=== PATIENT | female | born 1990 | race African-American/Black ===

== ENCOUNTER 2020-09-29 11:43 | Inpatient (IN) | payer MEDICAID, OTHER ==
[2020-09-29] VITALS (8 sets, daily range): BP systolic 93–114; BP diastolic 34–77
[~2020-09-29] VITALS: Ht 165.1 cm; Wt 59.0 kg
--- NOTE | 2020-09-29 11:50 | NUR ---
Dr Melo at bedside for MSE.
[2020-09-29] MEDS ORDERED: IV NORMAL SALINE 1000 ML BAG IV ONE (12:00)
[2020-09-29 12:09] LABS: BASOPHILS # (AUTO) 0.1 K/uL (0.0-8.0); BASOPHILS % (AUTO) 0.8 % (0.0-2.0); EOSINOPHILS # (AUTO) 0.1 K/uL (0.0-0.7); EOSINOPHILS % (AUTO) 1.1 % (0.0-7.0); HEMATOCRIT 37.8 % (31.2-41.9); HEMOGLOBIN 11.9 g/dL (10.9-14.3); LYMPHOCYTES # (AUTO) 2.6 K/uL (20.0-40.0); LYMPHOCYTES % (AUTO) 39.9 % (20.5-51.5); MEAN CORPUSCULAR HEMOGLOBIN 27.7 uug (24.7-32.8); MEAN CORPUSCULAR HGB CONC 32 g/dL (32.3-35.6); MEAN CORPUSCULAR VOLUME 87.6 fL (75.5-95.3); MONOCYTES # (AUTO) 0.3 K/uL (2.0-10.0); NEUTROPHILS # (AUTO) 3.5 K/uL (1.8-8.9); NEUTROPHILS % (AUTO) 54.2 % (38.5-71.5); PLATELET COUNT (AUTO) 256 K/uL (179-408); RED BLOOD CELL COUNT(AUTO) 4.31 MIL/uL (3.63-4.92); WHITE BLOOD COUNT (AUTO) 6.5 K/uL (3.8-11.8)
[2020-09-29 12:10] LABS: MAGNESIUM 1.9 mg/dL (1.8-2.4)
[2020-09-29 12:11] LABS: POTASSIUM 3.1 mmol/L (3.5-5.1)
--- NOTE | 2020-09-29 12:13 | NUR ---
Pt down to CAT scan, left with tech, stable condition.
[2020-09-29 12:16] LABS: BILIRUBIN,DIRECT 0.2 mg/dL (0.0-0.2); BILIRUBIN,TOTAL 0.4 mg/dL (0.2-1.0)
[2020-09-29] MEDS ORDERED: POTASSIUM CHLORIDE 20 MEQ TAB.PRT.SR PO ONE (12:45)
[2020-09-29] MEDS ORDERED: POTASSIUM CHLORIDE 20 MEQ TAB.PRT.SR ONE (12:48)
--- NOTE | 2020-09-29 13:07 | NUR ---
MD made aware of irregular HR, that goes back to SInus joellen cardia, lowest: 39 bpm. Repeat EKG done which shows marked SINUS bradycardia at 42 @1255.
[2020-09-29] MEDS ORDERED: ATROPINE SULFATE 1 MG/10 ML DISP.SYRIN IV ONE (13:15)
[2020-09-29] MEDS ORDERED: ATROPINE SULFATE 1 MG/10 ML DISP.SYRIN ONE (13:15)
--- NOTE | 2020-09-29 13:16 | NUR ---
Dr Melo s/w Dr. Benoit, patient will be admitted to Tele.
--- NOTE | 2020-09-29 13:22 | NUR ---
Atropine on hold at this time. HR increases 88-90 when awake and moving about
[2020-09-29] MEDS ORDERED: ACETAMINOPHEN 325 MG TABLET PO PRN (14:15)
[2020-09-29] MEDS ORDERED: ONDANSETRON 4 MG/2 ML VIAL IV PRN (14:15)
[2020-09-29] MEDS ORDERED: MAGNESIUM HYDROXIDE 30 ML LIQUID UDC PO PRN (14:15)
[2020-09-29] MEDS ORDERED: Z GUARD REMEDY PASTE 57 GM TUBE TOP PRN (14:15)
--- NOTE | 2020-09-29 14:35 | NUR ---
ADRIEL (-) per Lab (Gaby
[2020-09-29] MEDS ORDERED: ASPIRIN 81 MG TAB.CHEW ONE (14:37)
[2020-09-29] MEDS ORDERED: ASPIRIN 81 MG TAB.CHEW PO ONE (14:45)
--- NOTE | 2020-09-29 14:53 | NUR ---
John Yoder (significant other) of pt. Updated him on patient's condition, as requested by patient. Addendum: 09/29/20 at 1504 by KRISTIAN TEJAL: [phone]
--- NOTE | 2020-09-29 14:56 | NUR ---
Pt vomited x 1, turned to side.
--- NOTE | 2020-09-29 15:20 | NUR ---
Report given to Stephanie DESAI. Pt ready for rollover.
--- NOTE | 2020-09-29 15:21 | NUR ---
Family at bedside at this time prior to transfer.
--- NOTE | 2020-09-29 15:43 | NUR ---
Stephanie DESAI given an update.
--- NOTE | 2020-09-29 15:59 | NUR ---
Pt still in ER, 2D wind turbine blade repair technician at bedside.
--- NOTE | 2020-09-29 16:34 | NUR ---
Pt done with 2D echo, EF 40%, Cardiac Effusion: R side. results relayed to Dr Benoit by [employer].
--- NOTE | 2020-09-29 16:36 | NUR ---
Pt is on her way to CCU, transported by Markie DESAI, ACLS protocol, pacer pads in place, not pacing. Updated Vital Signs recorded.
--- NOTE | 2020-09-29 17:00 | NUR ---
received pt from ER via [facility]. pt is A&Ox4. pt bradycardia on the monitor with HR in the 40s and 50s. (R) AC 20g IV in place and patent. pt on room air. denies chest pain. no complaints of nausea/vomiting at this time.
[2020-09-29] MEDS: IV NS 1000 ML 1,000 ML IV PRN (17:24)
--- NOTE | 2020-09-29 17:55 | NUR ---
Dr. Benoit in the unit to see and assess pt. full report given. MD ordered stat EKG and troponin prior to arrival to unit. results relayed to . critical troponin 2.570
[2020-09-29] MEDS ORDERED: POTASSIUM CHLORIDE 50 ML IV SCH (18:15)
[2020-09-29] MEDS ORDERED: POTASSIUM CHLORIDE 20 MEQ POWDER PACKET PO ONE ×2 (18:15→21:00)
--- NOTE | 2020-09-29 18:50 | NUR ---
Dr. Benoit ordered to have cardiac CTA schedule for tomorrow. spoke to Elsy, order faxed to [phone]. they will call back once time is determined.
--- NOTE | 2020-09-29 19:00 | NUR ---
pt complained that her IV "baron" and starts crying. explained that its normal for IV potassium to cause burning sensation. pt asked if MD can be asked to stop IV potassium. Per Dr. Cy thorne to stop IV potassium and give her another 40mEq Potassium powder PO in 2 hours.
--- NOTE | 2020-09-29 20:30 | NUR ---
myers catheter fr 16 inserted as ordered, with 1 attempt, urine clear yellow about 100 ml, patient tolerated procedure well.
--- NOTE | 2020-09-29 21:22 | NUR ---
recieved critical lab value troponin. trending down, dr simona pelaez . therapeutic recreation assistant dr martinez notified no new order @ this time.
[2020-09-30] VITALS (24 sets, daily range): BP systolic 90–125; BP diastolic 42–79
[2020-09-30] MEDS: IV NS 1000 ML 1,000 ML IV PRN ×2 (04:04→16:28)
[2020-09-30 05:05] LABS: BASOPHILS # (AUTO) 0.1 K/uL (0.0-8.0); BASOPHILS % (AUTO) 0.6 % (0.0-2.0); EOSINOPHILS % (AUTO) 0.4 % (0.0-7.0); HEMATOCRIT 33.8 % (31.2-41.9); HEMOGLOBIN 10.6 g/dL (10.9-14.3); LYMPHOCYTES # (AUTO) 2.5 K/uL (20.0-40.0); LYMPHOCYTES % (AUTO) 24.6 % (20.5-51.5); MEAN CORPUSCULAR HEMOGLOBIN 27.3 uug (24.7-32.8); MEAN CORPUSCULAR HGB CONC 31 g/dL (32.3-35.6); MEAN CORPUSCULAR VOLUME 87.1 fL (75.5-95.3); MONOCYTES # (AUTO) 0.6 K/uL (2.0-10.0); MONOCYTES % (AUTO) 6.1 % (0.0-11.0); NEUTROPHILS # (AUTO) 6.9 K/uL (1.8-8.9); NEUTROPHILS % (AUTO) 68.3 % (38.5-71.5); PLATELET COUNT (AUTO) 211 K/uL (179-408); RED BLOOD CELL COUNT(AUTO) 3.88 MIL/uL (3.63-4.92); WHITE BLOOD COUNT (AUTO) 10.1 K/uL (3.8-11.8)
[2020-09-30 05:12] LABS: CREATININE 0.7 mg/dL (0.6-1.3); MAGNESIUM 1.8 mg/dL (1.8-2.4); PHOSPHOROUS 2.3 mg/dL (2.5-4.9); POTASSIUM 3.7 mmol/L (3.5-5.1)
--- NOTE | 2020-09-30 06:44 | NUR ---
pagearina , patient had 14 runs of vt asyptmatic , b/p 119/57, hr 104, respiratory rate 18,
--- NOTE | 2020-09-30 07:08 | NUR ---
per strapper, pt had 14 beats of vtach earlier this morning at around 5:55am. strapper RN relayed it to Dr. Benoit along with AM labs, with new orders for STAT EKG, 2gms IV Magnesium sulfate, and potassium chloride 40meq PO.
[2020-09-30] MEDS ORDERED: MAGNESIUM SULFATE 2 GM in IV DEXTROSE 5% 100 ML IV ONE (07:15)
[2020-09-30] MEDS ORDERED: POTASSIUM CHLORIDE 20 MEQ POWDER PACKET PO ONE (07:15)
[2020-09-30] MEDS: MAGNESIUM SULFATE/D5W 100 ML IV SCH ×2 (07:28→09:28)
--- NOTE | 2020-09-30 08:45 | NUR ---
Dr. Campa in the unit to see and assess pt.
[2020-09-30] MEDS: ASPIRIN 81 MG TAB.CHEW PO SCH (09:28)
--- NOTE | 2020-09-30 09:35 | NUR ---
this morning at around 0730am Dr. Benoit was asking if there was a scheduled time for patient's cardiac CTA yet. Informed MD that we were waiting for confirmation on time still. At around 8:15am, spoke to Alisa from [facility] and he said patient is scheduled at 4pm. Informed Dr. Benoit and per MD, see if they can have patient come in sooner and to make sure transportation is acls. At around 8:30am, spoke to Alisa again to inform him that Dr. Benoit wants to have patient come in sooner if possible. Per Alisa, they can take her in if she can be there between 11am-12pm today. Called different transportation companies to have patient there by that time. Spoke Jovanny from [facility] and they can have ALS transport w/ gambling monitor last picker the patient at 10:30am. Called Alisa to confirm that they willl take patient and he said yes. [facility]er at 10:30am roundtrip, trip#[id number]. Dr. Benoit made aware. patient signed consent.
--- NOTE | 2020-09-30 09:45 | NUR ---
Received call from Alisa in [facility]. 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 Per Alisa, patient would have to go back to the previously scheduled 4pm slot. Dr. Benoit made aware. transportation with [facility] for 1030am poultry picker cancelled. Patient had a previous transportation [facility] scheduled by case sealer Kadie for today poultry picker at 3pm for the 4pm cardiac CTA schedule at [place]. Spoke to Lalo from [facility] and per Lalo patient is still scheduled to be picked up at 3pm, roundtrip to [place]. Stephan at [place] aware and confirmed appointment time of 4pm.
--- NOTE | 2020-09-30 10:00 | NUR ---
MARINE SURVEYOR Lalo Coffey in the unit to see and assess pt. full report given
--- NOTE | 2020-09-30 12:24 | NUR ---
per pharmacy, reconcile medications that patient normally takes at home into the system. Spoke to the patient and per Chilo she doesn't take any medications at home. Pharmacist made aware
--- NOTE | 2020-09-30 12:41 | NUR ---
Dr. Benoit in the unit to see and assess pt. full report given.
--- NOTE | 2020-09-30 12:45 | NUR ---
Per Dr. Benoit, cancel pt's schedule cardiac CTA for now. pt will be undergoing ICD placement tomorrow. pt is to be NPO at midnight. gonna start pt on lidocaine and dopamine drip to maintain HR>60.
[2020-09-30] MEDS ORDERED: DOPamine IV DRIP 400 MG/250ML 250 ML IV PRN (13:15)
[2020-09-30] MEDS ORDERED: LIDOCAINE DRIP 2GM /D5W 500 ML 500 ML IV SCH (13:15)
[2020-09-30] MEDS ORDERED: LIDOCAINE DRIP 2GM /D5W 500 ML 500 ML IV PRN (13:36)
--- NOTE | 2020-09-30 14:15 | NUR ---
patient was started on IV dopamine drip and IV lidocaine drip as ordered however a couple of minutes into the infusion, patient's heart increased rapidly into the 90s and 100s and patient complained of pressure in her chest. Informed cardio Dr. Benoit and per stop IV drips.
--- NOTE | 2020-09-30 15:05 | NUR ---
Informed Dr. Benoit that patient keeps having episodes of torsades and HR fluctuates from 50s all the way up to the high 100s. pt remains awake, alert and verbally responsive. pt complains of pounding in her chest and feeling hot whenever HR increases otherwise goes away when HR goes down. continue to monitor for now per
[2020-09-30] MEDS ORDERED: NEUTRA PHOS PACKET PO ONE (15:15)
--- NOTE | 2020-09-30 16:39 | NUR ---
Dr. Grider in the unit to see and assess pt. full report given. MD at bedside to explain ICD placement tomorrow
--- NOTE | 2020-09-30 17:30 | NUR ---
ep tech at bedside to do EEG on pt
[2020-09-30] MEDS ORDERED: LIDOCAINE 2% 100 MG/5 ML SYRINGE IV ONE (18:45)
--- NOTE | 2020-09-30 18:52 | NUR ---
At around 1820, patient noted to have gone into torsades again with HR in the 180s to 200s. went into patient's room and patient stated she felt like everything went black and felt her heart pounding. Informed Cardio Dr. Benoit and per he will talk to his EP colleague and get back to me. At around 1830, received call from Dr. Benoit and asked to have crash cart open to get lidocaine and magnesium sulfate. MD gave order for Magnesium sulfate 2gm to be given via slow IV push, IV lidocaine 100mg via slow IV push, and Lidocaine drip 1mg/min. Per , once lidocaine drip is started order stat electrolytes with magnesium. orders carried out. pt remained awake, alert and verbally responsive.
[2020-09-30] MEDS ORDERED: MAGNESIUM SULFATE/D5W 100 ML IV SCH (19:00)
[2020-09-30 20:21] LABS: BILIRUBIN,TOTAL 0.3 mg/dL (0.2-1.0); CREATININE 0.8 mg/dL (0.6-1.3); MAGNESIUM 2.9 mg/dL (1.8-2.4); PHOSPHOROUS 2.5 mg/dL (2.5-4.9); POTASSIUM 4.2 mmol/L (3.5-5.1); TOTAL PROTEIN, SERUM 6.5 g/dL (6.4-8.2)
--- NOTE | 2020-09-30 21:54 | NUR ---
chemistry report called to dr jarvis, silver miner blasting.
--- NOTE | 2020-09-30 22:00 | NUR ---
DR SEYMOUR CALLED , RECEIVE ORDERS FOR LABS IN THE MORNING , NPO AFTER MIDNIGHT AND CONSENT FOR PROCEDURE
[2020-10-01] VITALS (24 sets, daily range): BP systolic 87–151; BP diastolic 43–99
[2020-10-01] MEDS: IV NS 1000 ML 1,000 ML IV PRN ×2 (01:39→12:03)
[2020-10-01 05:25] LABS: CARBON DIOXIDE 23 mmol/L (21-32); CHLORIDE 108 mmol/L (98-107); CREATININE 0.6 mg/dL (0.6-1.3); GLUCOSE 84 mg/dL (74-106); PHOSPHOROUS 3.3 mg/dL (2.5-4.9); UREA NITROGEN, BLOOD 3 mg/dL (7-18)
[2020-10-01 05:26] LABS: BASOPHILS % (AUTO) 0.7 % (0.0-2.0); EOSINOPHILS # (AUTO) 0.1 K/uL (0.0-0.7); EOSINOPHILS % (AUTO) 0.9 % (0.0-7.0); HEMATOCRIT 35.5 % (31.2-41.9); HEMOGLOBIN 11.5 g/dL (10.9-14.3); LYMPHOCYTES # (AUTO) 2.2 K/uL (20.0-40.0); LYMPHOCYTES % (AUTO) 33.3 % (20.5-51.5); MEAN CORPUSCULAR HEMOGLOBIN 28.1 uug (24.7-32.8); MEAN CORPUSCULAR HGB CONC 32 g/dL (32.3-35.6); MEAN CORPUSCULAR VOLUME 86.8 fL (75.5-95.3); MONOCYTES # (AUTO) 0.4 K/uL (2.0-10.0); MONOCYTES % (AUTO) 6.5 % (0.0-11.0); NEUTROPHILS # (AUTO) 3.8 K/uL (1.8-8.9); NEUTROPHILS % (AUTO) 58.6 % (38.5-71.5); PLATELET COUNT (AUTO) 262 K/uL (179-408); RED BLOOD CELL COUNT(AUTO) 4.09 MIL/uL (3.63-4.92); WHITE BLOOD COUNT (AUTO) 6.5 K/uL (3.8-11.8)
[2020-10-01] MEDS ORDERED: MAGNESIUM SULFATE 1 GM/2 ML VIAL IM ONE (06:00)
--- NOTE | 2020-10-01 06:56 | NUR ---
dr james cesar to give insulin coverage while npo Addendum: 10/01/20 at 0657 by VERNELL FLETCHER RN wrong patient
[2020-10-01 08:30] LABS: *BILIRUBIN,URIN NEGATIVE (NEGATIVE); *BLOOD, URINE 1+ (NEGATIVE); *CLARITY,URINE SLIGHTLY CLOUDY (CLEAR); *COLOR,URINE YELLOW (YELLOW); *KETONES,URINE 1+ (NEGATIVE); LEUKOCYTE ESTERASE ,URINE 2+ (NEGATIVE); NITRITE, URINE NEGATIVE (NEGATIVE); UGLUCOSE NEGATIVE (NEGATIVE)
[2020-10-01] MEDS: ASPIRIN 81 MG TAB.CHEW PO SCH (09:01)
[2020-10-01 09:18] LABS: BACTERIA,URINE FEW /HPF (NONE SEEN); SQUAMOUS EPITHELIAL CELL,UR MODERATE /HPF (NONE SEEN)
[2020-10-01 09:20] LABS: WBC,URINE 20-50 /HPF (0-3)
[2020-10-01 09:21] LABS: CALCIUM PHOSPHATE CRYSTALS,UR RARE /HPF (NONE SEEN)
[2020-10-01 09:22] LABS: MUCUS,URINE NONE SEEN /LPF (0-FEW)
[2020-10-01] MEDS ORDERED: CALCIUM GLUCONATE IV 1 GM in IV NORMAL SALINE 100 ML IV ONE (09:30)
--- NOTE | 2020-10-01 12:00 | NUR ---
REPORT GIVEN TO LLOYD MOON FROM OR PRIOR TO SCHEDULED PROCEDURE.
--- NOTE | 2020-10-01 12:03 | NUR ---
pre-op nurse called, SBAR report given to Lola. Patient to be picked up at 1230 for procedure
--- NOTE | 2020-10-01 12:35 | NUR ---
OR UTILITY WORKER ROLLER SHOP AT BEDSIDE. PICKED UP PATIENT FOR SCHEDULED PROCEDURE. NO S/S OF DISTRESS OR SOB NOTED. DENIES PAIN AT THIS TIME.
--- NOTE | 2020-10-01 12:40 | NUR ---
patient taken to OR with transport monitor
[2020-10-01] MEDS ORDERED: FENTANYL CITRATE 100 MCG/2 ML AMPUL ONE (12:50)
[2020-10-01] MEDS ORDERED: SEVOFLURANE 250 ML BOTTLE ONE (12:56)
[2020-10-01] MEDS ORDERED: CEFAZOLIN 2 G in IV DEXTROSE 5% 100 ML IV ONE (13:30)
[2020-10-01] MEDS ORDERED: BUPIVACAINE PF 0.5% 30 ML VIAL ONE (13:31)
[2020-10-01] MEDS ORDERED: IOHEXOL 300MG/ML 50 ML VIAL ONE (13:31)
[2020-10-01] MEDS ORDERED: LIDOCAINE HCL 1% 20 ML VIAL ONE (13:31)
[2020-10-01] MEDS ORDERED: IV NORMAL SALINE 1000 ML BAG IV ONE (14:43)
[2020-10-01] MEDS ORDERED: SEVOFLURANE 250 ML BOTTLE IH ONE (14:43)
[2020-10-01] MEDS ORDERED: CEFAZOLIN 1 G VIAL IM ONE (14:43)
[2020-10-01] MEDS ORDERED: LIDOCAINE-MPF 2% 5 ML VIAL IJ ONE (14:43)
[2020-10-01] MEDS ORDERED: ONDANSETRON 4 MG/2 ML VIAL IV ONE (14:43)
[2020-10-01] MEDS ORDERED: PROPOFOL 200 MG/20 ML BOTTLE IV ONE (14:43)
[2020-10-01] MEDS ORDERED: EPHEDRINE SULFATE 50 MG/ML AMPUL IM ONE (14:43)
[2020-10-01] MEDS ORDERED: MEPERIDINE 25 MG/1 ML DISP.SYRIN ONE ×2 (15:07→16:15)
[2020-10-01] MEDS: HYDROCODONE/APAP 5-325MG TABLET PO PRN ×2 (16:03→20:19)
[2020-10-01] MEDS: METOPROLOL TARTRATE 25 MG TABLET PO SCH ×2 (16:11→23:31)
--- NOTE | 2020-10-01 16:15 | NUR ---
Percilia Recovery gave report at this time.
--- NOTE | 2020-10-01 16:15 | NUR ---
patient brought back to the floor. patient complaining of 15/10 pain. Patient was given additional demerol dose for pain at time of transfer. [place] prn was also given at this time.
--- NOTE | 2020-10-01 19:00 | NUR ---
Received report from AM nurse. 30 y/o female admitted for Symptomatic Bradycardia - had Left Upper Chest Pacemaker placed in OR earlier in the day. Patient has 0.9 NS 100mls/hour + Lidocaine 0.5mg/hr infusing in her Right Upper Arm Midline (line patent). Patient is A&Ox4. Cooperative. Able to make her needs known. Educated to report and diaphoresis, chills, nausea, or new onset chest pain. Patient is currently being A-Paced (HR80). No irregularities noted on the monitor. No diaphoresis, no chills, no fever. Patient did report feeling hot (Temp 97.4) - the room itself was somewhat warm - AC turned on and vents opened (will f/o soon after). Patient is continent. Per day shift - patient reported some nausea earlier in day. None at the moment. No emesis. Urine shows 2+ leukocyte esterase but there is no Abx ordered at the moment - will f/o.
[2020-10-01] MEDS: HYDROMORPHONE 1 MG/1 ML DISP.SYRIN IV PRN (20:58)
--- NOTE | 2020-10-01 21:30 | NUR ---
Observed Tall/Peaked T-Waves on Client Experience Consultant - Patient seemed to be getting A/V paced during that period. Initially patient reported no pain - then later described Right Upper Chest Pain that Radiated down laterally. 02/03. 12-Lead EKG was ordered and was Non-Remarkable (1st Degree Block). I gave the patient 0.5mg Dilaudid to lessen the patients pain and lower her Blood Pressure (151/99). Due to the fact that this patient just recently had this pacemaker placed, I notified Cardiology qa automation developer Dr. Ordonez despite this likely being a non-issue. Dr. Ordonez made aware - was told the Dilaudid I administered should be fine.
[2020-10-02] VITALS (22 sets, daily range): BP systolic 117–171; BP diastolic 67–92
[2020-10-02] MEDS: IV NS 1000 ML 1,000 ML IV PRN ×3 (00:43→21:38)
[2020-10-02] MEDS: HYDROMORPHONE 1 MG/1 ML DISP.SYRIN IV PRN ×2 (01:16→08:26)
[2020-10-02 05:19] LABS: BASOPHILS % (AUTO) 0.5 % (0.0-2.0); EOSINOPHILS # (AUTO) 0.1 K/uL (0.0-0.7); EOSINOPHILS % (AUTO) 1.2 % (0.0-7.0); HEMATOCRIT 39.1 % (31.2-41.9); HEMOGLOBIN 12.2 g/dL (10.9-14.3); LYMPHOCYTES # (AUTO) 1.6 K/uL (20.0-40.0); LYMPHOCYTES % (AUTO) 21.6 % (20.5-51.5); MEAN CORPUSCULAR HEMOGLOBIN 27.2 uug (24.7-32.8); MEAN CORPUSCULAR HGB CONC 31 g/dL (32.3-35.6); MEAN CORPUSCULAR VOLUME 87.4 fL (75.5-95.3); MONOCYTES # (AUTO) 0.5 K/uL (2.0-10.0); MONOCYTES % (AUTO) 6.9 % (0.0-11.0); NEUTROPHILS # (AUTO) 5.3 K/uL (1.8-8.9); NEUTROPHILS % (AUTO) 69.8 % (38.5-71.5); PLATELET COUNT (AUTO) 243 K/uL (179-408); RED BLOOD CELL COUNT(AUTO) 4.47 MIL/uL (3.63-4.92); WHITE BLOOD COUNT (AUTO) 7.6 K/uL (3.8-11.8)
[2020-10-02 05:39] LABS: BILIRUBIN,DIRECT 0.1 mg/dL (0.0-0.2); BILIRUBIN,TOTAL 0.4 mg/dL (0.2-1.0); CREATININE 0.7 mg/dL (0.6-1.3); MAGNESIUM 1.8 mg/dL (1.8-2.4); POTASSIUM 3.9 mmol/L (3.5-5.1); TOTAL PROTEIN, SERUM 6.6 g/dL (6.4-8.2)
--- NOTE | 2020-10-02 07:02 | NUR ---
No acute changes throughout night. See previous note regarding possible EKG irregularities. Dilaudid (0.5mg) given x2 for R/L anterolateral chest pain. Worked well. 1500cc urine output - clear yellow. Will endorse possible UTI + need for Abx to AM shift. Vitals @ 0700: HR: 80 BP:123/72 RR:17 O2: 100% Temp: 97.9 --- LENCHO Midline intact and patent. Linens changed. No new wounds. SCDs in place.
--- NOTE | 2020-10-02 08:00 | NUR ---
keep patient npo until stat chest xray is done for pacer lead placement and once pacemaker is checked by roofing technician per doctor jarvis.
--- NOTE | 2020-10-02 08:07 | NUR ---
lidocaine to be titrated down to 0.25mg once pacemaker has been checked by licensed chemical spray technician.
[2020-10-02] MEDS: METOPROLOL TARTRATE 50 MG TABLET PO SCH ×2 (08:08→20:04)
--- NOTE | 2020-10-02 08:10 | NUR ---
PATIENT FINISHED EATING BREAKFAST. MORNING MEDS GIVEN. ASSISTED IN CLEARING PATIENT TABLE OF EXCESS FOOD FOR EASIER ASSESS TO HER BELONGINGS RE: LIMITED MOBILITY OF RIGHT ARM.
[2020-10-02] MEDS: HYDROCODONE/APAP 5-325MG TABLET PO PRN (08:26)
[2020-10-02] MEDS ORDERED: METOPROLOL TARTRATE 25 MG TABLET PO SCH (09:00)
--- NOTE | 2020-10-02 10:51 | NUR ---
AGRICULTURAL TECHNICAL OFFICER AT BEDSIDE TO ASSESS PACEMAKER FUNCTIONS.
--- NOTE | 2020-10-02 11:40 | NUR ---
DOCTOR BOYER CALLED TO INFORM THE NEED OF A PACEMAKER REVISION. PATIENT TO BE NPO AND WILL TALK TO ANESTHESIA AND OR FOR SCHEDULING.
[2020-10-02] MEDS ORDERED: LIDOCAINE DRIP 2GM /D5W 500 ML 500 ML IV PRN ×2 (11:45→17:30)
--- NOTE | 2020-10-02 12:10 | NUR ---
RED FROM SURGERY CALLED. PROCEDURE PLAN IS FOR 1600 AND WILL BE PICKED UP AT 1530.
[2020-10-02] MEDS ORDERED: IOHEXOL 300MG/ML 50 ML VIAL ONE (15:37)
[2020-10-02] MEDS ORDERED: LIDOCAINE HCL 1% 20 ML VIAL ONE (15:37)
[2020-10-02] MEDS ORDERED: BUPIVACAINE PF 0.5% 30 ML VIAL ONE (15:38)
--- NOTE | 2020-10-02 15:46 | NUR ---
OR STAFF PICKED UP PATIENT WITH MONITOR ON FOR SCHEDULED PROCEDURE. Addendum: 10/02/20 at 1551 by VIRGIL HUMPHREY RN REPORT GIVEN TO LLOYD CAN. PATIENT DENIES PAIN. NO S/S OF DISTRESS OR SOB NOTED AT THIS TIME.
[2020-10-02] MEDS ORDERED: MIDAZOLAM HCL 2 MG/2 ML VIAL ONE (16:03)
[2020-10-02] MEDS ORDERED: FENTANYL CITRATE 100 MCG/2 ML AMPUL ONE (16:03)
[2020-10-02] MEDS ORDERED: SUCCINYLCHOLINE CHLORIDE 200 MG/10 ML VIAL ONE (16:04)
[2020-10-02] MEDS ORDERED: ETOMIDATE 20 MG/10 ML VIAL IV ONE (17:18)
[2020-10-02] MEDS ORDERED: PROPOFOL 200 MG/20 ML BOTTLE IV ONE (17:18)
[2020-10-02] MEDS ORDERED: CEFAZOLIN 1 G VIAL IM ONE (17:18)
[2020-10-02] MEDS ORDERED: GLYCOPYRROLATE 0.2 MG/ML VIAL IJ ONE (17:18)
[2020-10-02] MEDS ORDERED: NEOSTIGMINE METHYLSULFATE 10 MG/10 ML VIAL IM ONE (17:18)
[2020-10-02] MEDS ORDERED: ONDANSETRON 4 MG/2 ML VIAL IV ONE (17:18)
[2020-10-02] MEDS ORDERED: EPINEPHRINE 1 MG/1 ML AMP IJ ONE (17:18)
[2020-10-02] MEDS ORDERED: LIDOCAINE-MPF 2% 5 ML VIAL IJ ONE (17:18)
[2020-10-02] MEDS ORDERED: DEXAMETHASONE SOD PHOSPHATE 4 MG INJ IV ONE (17:18)
--- NOTE | 2020-10-02 17:22 | NUR ---
CONTINUE TO TITRATE DOWN LIDOCAINE DRIP TO 0.25MG WHEN PATIENT COMES BACK FROM RECOVERY. IF NO FURTHER EVENTS CAN BE DISCONTINUED AT MIDNIGHT PER ARY FREEMAN.
--- NOTE | 2020-10-02 18:35 | NUR ---
PATIENT RETURNED FROM RECOVERY ROOM AT THIS TIME. VSS. DENIES PAIN. NO S/S OF DISTRESS OR SOB NOTED.
--- NOTE | 2020-10-02 19:05 | NUR ---
Received patient in bed awake and alert with family at the bedside. Patient is status post AICD placement on 10/01 and a revision for displaced lead @1600 this afternoon. Insertion site in the left chest. Patient is currently paced on the monitor with a HR of 80. BP is stable but hypertensive SBP 154. Patient is currently on Lidocaine drip @0.25mcg/min with orders to discontinue the drip at midnight if there are no cardiac events. LENCHO midline present and patent. Murray present draining clear yellow urine. Patient is currently on room air with SAT 99-100%. No current complaints of pain at the AICD insertion site.
[2020-10-02] MEDS ORDERED: hydrALAZINE HCL 20 MG/1 ML VIAL IV PRN (21:15)
[2020-10-03] VITALS (16 sets, daily range): BP systolic 121–171; BP diastolic 68–92
--- NOTE | 2020-10-03 | NUR ---
Lidocaine Drip turned off. ECG disclosure reviewed and there were no cardiac events since the patient's return from surgery.
[2020-10-03 05:04] LABS: CREATININE 0.8 mg/dL (0.6-1.3); MAGNESIUM 1.7 mg/dL (1.8-2.4); POTASSIUM 4.1 mmol/L (3.5-5.1)
[2020-10-03 05:14] LABS: BASOPHILS % (AUTO) 0.2 % (0.0-2.0); EOSINOPHILS % (AUTO) 0.1 % (0.0-7.0); HEMATOCRIT 39.3 % (31.2-41.9); HEMOGLOBIN 12.7 g/dL (10.9-14.3); LYMPHOCYTES # (AUTO) 1.5 K/uL (20.0-40.0); LYMPHOCYTES % (AUTO) 14.8 % (20.5-51.5); MEAN CORPUSCULAR HEMOGLOBIN 27.9 uug (24.7-32.8); MEAN CORPUSCULAR HGB CONC 32 g/dL (32.3-35.6); MEAN CORPUSCULAR VOLUME 86.6 fL (75.5-95.3); MONOCYTES # (AUTO) 0.6 K/uL (2.0-10.0); MONOCYTES % (AUTO) 6.6 % (0.0-11.0); NEUTROPHILS # (AUTO) 7.7 K/uL (1.8-8.9); NEUTROPHILS % (AUTO) 78.3 % (38.5-71.5); PLATELET COUNT (AUTO) 263 K/uL (179-408); RED BLOOD CELL COUNT(AUTO) 4.54 MIL/uL (3.63-4.92); WHITE BLOOD COUNT (AUTO) 9.9 K/uL (3.8-11.8)
[2020-10-03] MEDS: HYDROMORPHONE 1 MG/1 ML DISP.SYRIN IV PRN (05:22)
--- NOTE | 2020-10-03 07:00 | NUR ---
Patient had hypertension in the 170sSBP, attemted to rotate BP cuff site, and BP remained in the 170s. Hydralazine given @0638 and it was effective with next SBP 142 @0700. Patient has been stable with pacing @80bpm throughout the night. lidocaine drip turned off at midnight, and tolerated well without it, no cardiac events. Patient is good spirits, gave herself a bed bath this morning.
--- NOTE | 2020-10-03 07:25 | NUR ---
received patient in bed, asleep. pt arousable to name. pt A&Ox4, able to make needs known. call light within reach. pt paced rhythm on the monitor with HR 80. pt remains on room air. LENCHO canseco patent, running NS @100ml/hr. myers cath in place.
[2020-10-03] MEDS: IV NS 1000 ML 1,000 ML IV PRN (07:31)
--- NOTE | 2020-10-03 08:00 | NUR ---
entry level automotive technician at bedside for ICD check
[2020-10-03] MEDS: METOPROLOL TARTRATE 50 MG TABLET PO SCH (08:35)
[2020-10-03] MEDS ORDERED: MAGNESIUM SULFATE/D5W 100 ML IV SCH (09:45)
--- NOTE | 2020-10-03 09:45 | NUR ---
pt requested for assistance with filing for disability. spoke to WINNIE Sol and she said she will come some time today to talk to the patient. patient informed.
--- NOTE | 2020-10-03 10:53 | NUR ---
WINNIE Sol at bedside
--- NOTE | 2020-10-03 11:06 | NUR ---
CINDER BLOCK MAKER Lalo Coffey in the unit to see and assess pt. full report given. Informed CINDER BLOCK MAKER that patient was asking if shes cleared to get up and walk. Per CINDER BLOCK MAKER, wait until Dr. Benoit comes to see patient and ask .
--- NOTE | 2020-10-03 11:56 | NUR ---
Pharmacist asking if lidocain drip order can be discontinued since patient has been off of it since midnight. Clarified with Dr. Benoit and per , okay to DC order. also said to have patient walk and see how she does. Will try to walk with patient after she finished eating lunch.
--- NOTE | 2020-10-03 12:36 | NUR ---
Patient's nurse Hortensia Brown requested social work manager for the patient, as patient was asking about applying for disability. This SW met with the patient at bedside. Patient is a 30 year old female. Patient lives at home with her children and her children's father. Patient is currently receiving [employer], and has not been employed for over 1 year. Patient inquired about applying for disability. SW provided patient with contact information to the local [facility] office, [address] [place] [address],. [place] [address], , and informed patient that patient can contact them and apply by phone. Patient expressed understanding and stated that she would follow-up.
--- NOTE | 2020-10-03 13:12 | NUR ---
walked pt back and forth around the room. no complaints of dizziness or chest pain. pt remained mostly paced on the monitor at 80bpm, occasionally increasing in the 80s ((81-85) but remained sinus. no adverse cardiac events noted. tolerated well.
--- NOTE | 2020-10-03 14:05 | NUR ---
Dr. Benoit in the unit to see and assess pt. full report given. Per MD, patient is okay to be discharged home today. MD ordered EKG prior to discharge for baseline. RT informed
--- NOTE | 2020-10-03 14:07 | NUR ---
Received call from CORE EXTRUDER Lalo Coffey. Per CORE EXTRUDER, he agrees with Dr. Benoit's order for discharge home. CORE EXTRUDER ordered to DC Murray and have patient void prior to discharge. Murray removed
[2020-10-03] MEDS ORDERED: METO50TA16 PO (14:36)
[2020-10-03] MEDS ORDERED: HYDR-3972 PO (14:36)
--- NOTE | 2020-10-03 14:37 | NUR ---
pt able to ambulate to the restroom. walked with patient to room 204. patient able to void post myers catheter removal. denies chest pain, dizziness or any cardiac symptoms. paced rhythm on monitor once connected back in bed.
--- NOTE | 2020-10-03 15:11 | NUR ---
discharge instructions given and explained to patient. pt verbalized understanding of all discharge instructions. patient signed discharge instructions and belongings list. LENCHO midline removed. no bleeding at the site. assisted pt to change into her regular clothes. no complaints at this time. pt states "i feel good".
--- NOTE | 2020-10-03 16:06 | NUR ---
patient discharged home. patient was picked up by her . transferred pt downstairs via wheelchair. pt left with all belongings and discharge instructions. once again educated on discharge instructions such as follow up with PCP, transmission inspector, metoprolol, norco, s/s infection at pacemake site, return to ER if any symptoms, etc. pt left in stable condition. pt ambulated from wheelchair to car with .
== END 2020-10-03 16:10 | disposition home or self-care (01) | DRG 161 ==
LOC: ER 11:43 → CCU 15:07
PROVIDERS: ADMIT Internal Medicine; ATTEND Nurse Practitioner Family
PROC: 05H533Z Insertion of Infusion Device into Right Subclavian Vein, Percutaneous Approach (ICD-10-PCS; principal; 2020-09-29)
PROC: B546ZZA Ultrasonography of Right Subclavian Vein, Guidance (ICD-10-PCS; principal; 2020-09-29)
PROC: 02H63KZ Insertion of Defibrillator Lead into Right Atrium, Percutaneous Approach (ICD-10-PCS; 2020-10-01)
PROC: 02HK3KZ Insertion of Defibrillator Lead into Right Ventricle, Percutaneous Approach (ICD-10-PCS; 2020-10-01)
PROC: 0JH608Z Insertion of Defibrillator Generator into Chest Subcutaneous Tissue and Fascia, Open Approach (ICD-10-PCS; 2020-10-01)
PROC: 0JW Subcutaneous Tissue and Fascia, Revision (ICD-10-PCS; 2020-10-02)
DX: I45.81 Long QT syndrome (principal); I21.4 Non-ST elevation (NSTEMI) myocardial infarction; I46.9 Cardiac arrest, cause unspecified; I95.9 Hypotension, unspecified; I42.9 Cardiomyopathy, unspecified; R56.9 Unspecified convulsions; I47.2 Ventricular tachycardia; E87.6 Hypokalemia; R00.1 Bradycardia, unspecified; R55 Syncope and collapse; R74.01 Elevation of levels of liver transaminase levels; T82.897A Other specified complication of cardiac prosthetic devices, implants and grafts, initial encounter; Y84.8 Other medical procedures as the cause of abnormal reaction of the patient, or of later complication, without mention of misadventure at the time of the procedure; Y92.230 Patient room in hospital as the place of occurrence of the external cause; Z82.49 Family history of ischemic heart disease and other diseases of the circulatory system; Z87.891 Personal history of nicotine dependence; Z20.822 Contact with and (suspected) exposure to COVID-19
CPT/HCPCS: 36415; 70030-TC; 70450; 71045; 83605; 83735; 84100; 84443; 85025; 85610; 85730; 87077; 87086; 93005; 93307; 95819; A4649; A4663; C1721; G0378; J0171; J0330; J0360; J0461; J0610; J0690; J1100; J1170; J1265; J2001; J2175; J2250; J2405; J3010; J3475; J3480; J3490; J7030; J7060; Q9967

== ENCOUNTER 2020-10-13 16:18 | Emergency (ER) | payer MEDICAID, OTHER ==
[~2020-10-13] VITALS: Ht 175.3 cm; Wt 58.1 kg
[~2020-10-13 16:18] MED LIST: HYDR-3972 PO; METO50TA16 PO
[2020-10-13 16:38] VITALS: BP 100/76
--- NOTE | 2020-10-13 16:41 | NUR ---
Patient discharged to home in stable condition. Written and verbal after care instructions given. Patient verbalizes understanding of instructions. Stressed follow up or return to ER for worsening s/s.
== END 2020-10-13 16:41 | disposition home or self-care (01) ==
LOC: ER 16:23
DX: Z48.01 Encounter for change or removal of surgical wound dressing (principal); Z95.810 Presence of automatic (implantable) cardiac defibrillator
CPT/HCPCS: A4663

== ENCOUNTER 2020-10-27 14:23 | Emergency (ER) | payer MEDICAID, OTHER ==
[~2020-10-27] VITALS: Ht 175.3 cm; Wt 56.7 kg
[2020-10-27] MEDS ORDERED: IV NORMAL SALINE 1000 ML BAG IV ONE (14:45)
[2020-10-27] MEDS ORDERED: ONDANSETRON 4 MG/2 ML VIAL IV ONE (14:45)
[2020-10-27] MEDS ORDERED: PANTOPRAZOLE SODIUM 40 MG VIAL IV ONE (14:45)
[2020-10-27 15:00] LABS: BASOPHILS # (AUTO) 0.1 K/uL (0.0-8.0); BASOPHILS % (AUTO) 0.5 % (0.0-2.0); EOSINOPHILS % (AUTO) 0.1 % (0.0-7.0); HEMATOCRIT 40.8 % (31.2-41.9); HEMOGLOBIN 13.3 g/dL (10.9-14.3); LYMPHOCYTES % (AUTO) 10.2 % (20.5-51.5); MEAN CORPUSCULAR HEMOGLOBIN 28.2 uug (24.7-32.8); MEAN CORPUSCULAR HGB CONC 33 g/dL (32.3-35.6); MEAN CORPUSCULAR VOLUME 86.4 fL (75.5-95.3); MONOCYTES # (AUTO) 0.5 K/uL (2.0-10.0); MONOCYTES % (AUTO) 5.2 % (0.0-11.0); NEUTROPHILS # (AUTO) 8.1 K/uL (1.8-8.9); PLATELET COUNT (AUTO) 333 K/uL (179-408); RED BLOOD CELL COUNT(AUTO) 4.73 MIL/uL (3.63-4.92); WHITE BLOOD COUNT (AUTO) 9.7 K/uL (3.8-11.8)
[2020-10-27 15:08] LABS: CREATININE 0.8 mg/dL (0.6-1.3); POTASSIUM 3.5 mmol/L (3.5-5.1)
[2020-10-27] MEDS ORDERED: ONDANSETRON 4 MG/2 ML VIAL ONE (15:08)
[2020-10-27] MEDS ORDERED: PANTOPRAZOLE SODIUM 40 MG VIAL ONE (15:09)
[2020-10-27 15:20] LABS: BILIRUBIN,DIRECT 0.1 mg/dL (0.0-0.2); BILIRUBIN,TOTAL 0.4 mg/dL (0.2-1.0); TOTAL PROTEIN, SERUM 8.8 g/dL (6.4-8.2)
[2020-10-27] MEDS ORDERED: PYRI25TA4 PO (16:38)
[2020-10-27 17:23] VITALS: BP 106/62
== END 2020-10-27 17:18 | disposition home or self-care (01) ==
LOC: ER 14:23
DX: O21.0 Mild hyperemesis gravidarum (principal); Z3A.00 Weeks of gestation of pregnancy not specified; O99.419 Diseases of the circulatory system complicating pregnancy, unspecified trimester; I49.8 Other specified cardiac arrhythmias; I45.81 Long QT syndrome; Z95.810 Presence of automatic (implantable) cardiac defibrillator
CPT/HCPCS: 36415; 80048; 80076; 84702; 85025; 96374; 99284; C9113; J2405; J7030